=== PATIENT | female | born 1935 | race Caucasian/White ===

== ENCOUNTER 2016-11-28 04:07 | Inpatient (IN) ==
[2016-11-24 15:05] LABS: MANUAL DIFF NEEDED? NO
[2016-11-24 15:11] LABS: BASO% 0.5 % (0.0-0.8); EOS# 0.38 X1000 (0.0-0.7); EOS% 4.5 % (0.0-10.0); HEMATOCRIT 41.5 % (37.0-47.0); HEMOGLOBIN 13.6 g/dL (12.0-16.0); IMM GRAN# 0.04 X1000 (0.0-0.04); IMM GRAN% 0.5 % (0.0-0.5); LYMPH# 2.65 X1000 (1.2-3.4); LYMPH% 31.1 % (20.5-51.1); MCH 31.6 PG (27-31); MCHC 32.8 g/dL (33-37); MCV 96.5 FL (81-99); MONO# 0.75 X1000 (0.11-0.59); MONO% 8.8 % (1.7-9.3); MPV 10.5 FL (7.4-10.4); NEUT% 54.6 % (42.2-75.2); PLT 305 X1000 (130-400)
[2016-11-24 16:12] LABS: CALCIUM 10.1 mg/dL (8.8-10.2); POTASSIUM 4.5 mmol/L (3.5-5.1)
--- NOTE | 2016-11-24 16:22 | EKG Report ---
Test Performed on : 11/24/2016 2:40:36 PM Test Reason : PAT Blood Pressure : / mmHG Vent. Rate : 070 BPM Atrial Rate : 070 BPM P-R Int : 144 ms QRS Dur : 078 ms QT Int : 398 ms P-R-T Axes : 028 -28 037 degrees QTc Int : 429 ms Sinus rhythm. with premature atrial complexes. Otherwise normal ECG No previous ECGs available Confirmed by Madie CHEUNG, Eric Shore ([id number]) on 11/24/2016 6:49:29 PM
[2016-11-28] MEDS ORDERED: LR 1,000 ML ONE ×2 (07:13→16:39)
[2016-11-28] MEDS ORDERED: KEFZOL 1 GM/D5W 1 GM/50 ML IVPB ONE (07:13)
[2016-11-28] MEDS ORDERED: VERSED ONE (10:07)
[2016-11-28] MEDS ORDERED: XYLOCAINE 1%/EPI 1:100,000 ONE (10:44)
[2016-11-28] MEDS ORDERED: HEPARIN ONE (10:44)
[2016-11-28] MEDS ORDERED: NS 1,000 ML ONE (10:44)
[2016-11-28] MEDS ORDERED: XYLOCAINE 1% ONE (10:44)
[2016-11-28] MEDS ORDERED: NS 500 ML ONE (10:52)
[2016-11-28] MEDS ORDERED: FENTANYL ONE (13:27)
[2016-11-28] MEDS ORDERED: DIPRIVAN 1% ONE (13:27)
[2016-11-28] MEDS ORDERED: ZOFRAN IV PRN (14:49)
[2016-11-28] MEDS ORDERED: NORCO-5 PO PRN (14:49)
[2016-11-28] MEDS ORDERED: LR 1,000 ML IV SCH (15:00)
[2016-11-28] MEDS ORDERED: ZOFRAN ONE (16:38)
[2016-11-28] MEDS ORDERED: DECADRON ONE (16:39)
[2016-11-28] MEDS ORDERED: QUELICIN (DOSE) ONE (16:39)
[2016-11-28] MEDS ORDERED: XYLOCAINE 2% JELLY ONE (16:39)
[2016-11-28] MEDS ORDERED: PIGGYBACK SET 7393 ONE (16:39)
[2016-11-28] MEDS ORDERED: ZEMURON ONE (16:39)
[2016-11-28] MEDS ORDERED: XYLOCAINE-MPF 2% ONE (16:39)
--- NOTE | 2016-11-28 16:40 | OPERATIVE NOTE ---
PROCEDURE DATE: 11/28/2016 PREOPERATIVE DIAGNOSIS: Critical left carotid stenosis, asymptomatic. POSTOPERATIVE DIAGNOSIS: Critical left carotid stenosis, asymptomatic. PRINCIPAL PROCEDURE: Left carotid endarterectomy with patch angioplasty. SURGEON: Diana Law MD RN CLINICAL REVIEW: Samuel Washburn MD ANESTHESIA: General in addition to local anesthetic. ESTIMATED BLOOD LOSS: 100 mL. DRAINS: TLS drain, left neck. 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 On exam, it was noted that she had a carotid bruit and Dr. Andrés Reddy sent her for a carotid study, which documented a critical stenosis at the takeoff of the left internal carotid artery. They had a trip planned for [place], but wanted to cancel that trip and stay home and proceed with this carotid endarterectomy. FINDINGS: She had a focal calcified plaque at the takeoff of the left internal carotid artery. We removed this plaque and it feathered nicely distally. Her vessels were small as expected and we performed a patch angioplasty. We did use a shunt during the procedure. We felt that the procedure went well. We will hospitalize her overnight in the ICU. DESCRIPTION OF PROCEDURE: The patient was brought to the operating room, placed supine, received general anesthesia, and was intubated. Her left neck was prepped and draped within a sterile field. We used an Ioban on the skin. She received Ancef prophylactically. We placed her in reverse Trendelenburg. She had a slim neck. She is a small woman and therefore, we decided to do perform an oblique incision in the skin lines left neck. We used local anesthetic at our incision site. We made the incision with a 15 blade scalpel. This incision was carried down through the skin, subcutaneous tissue, and platysma muscle and then we created a subplatysmal plane, both superiorly and inferiorly using the cautery. We used a Gelpi for self-retaining retraction and also hand-held retractors and using forceps and scissors we dissected out the common carotid artery, isolated it with a vessel loop and we worked from proximal to distal. We identified the branches of the common carotid artery the external and internal, and we isolated them with vessel loops. The patient was given 5000 units of IV heparin and after 3 minutes we stopped flow through our common carotid artery and its branches, using the vessel loops only. We made an arteriotomy in the lateral aspect of the distal common carotid artery with an 11 blade scalpel and then using Ortega scissors we cut through the plaque into the internal carotid artery. We placed a shunt first proximally and then distally. We used a shunt clamp distally and we controlled the shunt proximally with a vessel loop. We used a Wingate elevator to remove the plaque from proximal to distal. It feathered nicely in the internal carotid artery. We irrigated out the arteriotomy site and any loose debris was removed with fine forceps. We chose the 0.8 cm width patch and we sewed it to our arteriotomy site with a double-arm 6-0 Prolene stitch. Prior to completing the closure, we removed the shunt and we flushed the common through our arteriotomy site and also allowed the external and internal arteries to back bleed. We completed our closure of the arteriotomy site. We reestablished blood supply through the external carotid artery and then the internal carotid artery. No further stitches had to be taken within our patch. We placed a TLS drain left neck. It was brought out through a separate stab incision more inferiorly. It was secured to the skin with a 3-0 silk stitch. We closed the wound in layers. First layer was 3-0 Vicryl stitch, running to close the platysma muscle and then the skin was closed with 4-0 Monocryl subcuticular stitch. Dressings were applied. She was awakened in the operating room, seemed to be doing well, moving all extremities with plans for her to go to the ICU. I spoke with her after the procedure. cc: MD Laron De MD
[2016-11-28] MEDS: ASPIRIN PO SCH (20:16)
[2016-11-28] MEDS: VITAMIN D PO SCH (20:16)
[2016-11-28] MEDS: ZETIA PO SCH (20:16)
[2016-11-28] MEDS: COZAAR PO SCH (20:17)
[2016-11-29 06:53] LABS: HEMOGLOBIN 12.8 g/dL (12.0-16.0); MCH 31.9 PG (27-31); MCHC 32.8 g/dL (33-37); MCV 97.3 FL (81-99); MPV 11.3 FL (7.4-10.4); RBC 4.01 XMIL (4.2-5.4)
[2016-11-29 07:18] LABS: CALCIUM 9.8 mg/dL (8.8-10.2); POTASSIUM 4.5 mmol/L (3.5-5.1)
--- NOTE | 2016-11-29 07:43 | PROGRESS NOTE ---
DATE: 11/29/2016 SUBJECTIVE: Ms. Nguyễn is now postop day 1 from a left carotid endarterectomy with patch angioplasty. She is 81 years of age. She is a patient Dr. Andrés Reddy. She had asymptomatic critical stenosis at the takeoff of the left internal carotid artery. Because her vessels were small we performed a patch angioplasty. She was hospitalized overnight in our ICU for safety and she has done very well. OBJECTIVE: She has minimal swelling involving her incision and neck. She has had minimal output from her TLS drain which I removed this morning. ASSESSMENT AND PLAN: She is awake, cooperative, without evidence of any neurologic deficit. We will remove her arterial line and transfer her to the floor . cc: Diana Law MD
--- NOTE | 2016-11-29 11:05 | PROGRESS NOTE ---
DATE: 11/29/2016 SUBJECTIVE: Ms. Shantell Fang is postoperative day #1 following a left carotid endarterectomy. Clinically, she is doing well. She remains in normal sinus rhythm. Her blood pressure is well controlled. Systolic blood pressures have ranged from 123-129, whereas her diastolic blood pressures have ranged from 67-73. She denies any chest pain, palpitations, or anginal equivalents. She has had no TIA type symptoms. Dr. Law discontinued the drain earlier this morning. OBJECTIVE: Vital signs: Temperature 97.6 degrees, pulse 50, respirations 14, BP 123/73. CV: Regular rate and rhythm. Lungs: Clear. Abdomen: Soft, nontender, with active bowel sounds. ASSESSMENT AND PLAN: 1. Hypertension. Her blood pressure is well controlled. We will continue losartan 100 mg daily. 2. Critical internal carotid artery lesion, status post left carotid endarterectomy. Clinically, she is doing well. We will continue aspirin 81 mg daily and use [place] as needed for pain. She is tolerating a regular diet without nausea, vomiting, or abdominal pain. She has had no transient ischemic attack type symptoms. We will transfer her to the floor. cc: MD Diana Pimentel MD
[2016-11-29] MEDS: ASPIRIN PO SCH (20:13)
[2016-11-29] MEDS: ZETIA PO SCH (20:13)
[2016-11-29] MEDS: VITAMIN D PO SCH (20:13)
[2016-11-29] MEDS: COZAAR PO SCH (20:13)
--- NOTE | 2016-11-30 09:01 | PROGRESS NOTE ---
DATE: 11/30/2016 SUBJECTIVE: Ms. Fang is postoperative day #2 following a left carotid endarterectomy. Clinically, she is doing very well. She has had no TIA type symptoms. She is tolerating a regular diet without nausea, vomiting, or dysphagia. Blood pressure remains well controlled. She denies any chest pain, palpitations, or anginal equivalents. OBJECTIVE: Vital Signs: Temperature 97.1 degrees, pulse 72, respirations 16, BP 130/67. CV: Regular rate and rhythm. Lungs: Clear. Abdomen: Soft, nontender, with active bowel sounds. ASSESSMENT AND PLAN: 1. Hypertension. Her blood pressure is well controlled. We will continue losartan 100 mg daily. 2. Stenosis of the left carotid artery, status post left carotid endarterectomy. We will continue aspirin 81 mg daily. She is to follow up with Dr. Law in 7-10 days. We will recheck a carotid ultrasound in 6 months. 3. Mixed hyperlipidemia. She has been intolerant of multiple statins. We will continue Zetia 10 mg daily. I will recheck liver function tests and lipid profile as an outpatient. Potentially, she could be a candidate for Repatha to lower LDL. cc: MD Diana Pimentel MD MTDD
[2016-11-30 09:19] VITALS: BP 103/54
--- NOTE | 2016-12-01 02:59 | DISCHARGE SUMMARY ---
ADMISSION DATE: 11/28/2016 DISCHARGE DATE: 11/30/2016 ADMITTING DIAGNOSIS: Critical asymptomatic stenosis, left internal carotid artery. DISCHARGE DIAGNOSIS: Critical asymptomatic stenosis, left internal carotid artery. PRINCIPAL PROCEDURE: Left carotid endarterectomy, with patch angioplasty, on 11/28/2016. DISCHARGE DISABILITIES: Full. DISCHARGE DIET: Regular. DISCHARGE DISPOSITION: She will return to our outpatient offices in approximately 10 days for followup and wound care check. DISCHARGE MEDICATIONS: She is to return to her home medication, in addition to 81 mg aspirin daily. HOSPITAL COURSE: Ms. 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 She is also a patient Dr. Andrés Reddy. Recently, on physical exam, it was noted that she had a carotid bruit, and she underwent noninvasive carotid studies, which showed a critical stenosis at the takeoff of the left internal carotid artery. We felt that this stenosis was asymptomatic, but we did recommend left carotid endarterectomy. She was admitted on the day of surgery and underwent a left carotid endarterectomy with patch angioplasty. We left a TLS drain within the wound at the time of surgery. From surgery, she went to the ICU. She has done quite well. On postoperative day 1, we were able to advance her diet, remove her art line, and she was ready to be transferred to the floor, but we had no room, so she stayed in the ICU until postoperative day 2. On postoperative day 2, she was totally awake. She was able to tolerate a diet. She had no neurologic deficits, and no evidence of any cranial nerve injury. Her oblique wound was healing well, with minimal swelling, and it was felt safe to discharge her home under the care of her , with followup in my outpatient office in 7-10 days. She knows to contact us with any problems. Throughout her hospitalization, Dr. Andrés Reddy also followed her. cc: MD Laron De MD
== END 2016-11-30 09:49 | disposition home or self-care (01) ==
LOC: SURHOLD 04:07 → ICU 14:36
PROVIDERS: ADMIT Surgery; ATTEND Surgery